=== PATIENT | female | born 1945 | race Caucasian/White ===

== ENCOUNTER 2016-05-29 12:02 | Inpatient (IN) | payer MEDICARE, OTHER ==
[~2016-05-29] VITALS: Ht 165.1 cm; Wt 75.0 kg
[2016-05-29] VITALS (8 sets, daily range): BP systolic 114–164; BP diastolic 56–120
--- NOTE | ~2016-05-29 | CON ---
[place], [place] REPORT OF CONSULTATION NAME: LI MUNGUIA UNIT #: [id number] ROOM: 526 DOCTOR: WILLIAM FERRARA MD BIRTHDATE: [birth year] DOS: 06/01/2016 PSYCHIATRIC CONSULT CHIEF COMPLAINT: "I want to go home." HISTORY OF PRESENT ILLNESS: This is a 71-year-old white female who resides in the [facility]. She lives alone, but does have a home paraprofessional. Her aide felt that she was not acting right and patient had been complaining of burning with urination, so the aide suspected a UTI and brought her in to the Emergency Room to be evaluated. She was subsequently admitted to the hospital for further treatment. Since she has been here, she has voiced worsening depression. She stated to me that she follows at [facility] in [place] and is on multiple meds, some of them help, some of them do not, but she does feel that her depression has worsened of late. She reports fairly decent sleep and appetite. Her energy level was low. She at times gets anxious. There is no psychosis or edis. MENTAL STATUS: Reveals her to be alert and oriented with some mild time gaps, but very little. Mood does seem to be mildly depressed with some anxious overtones. There is no agitation or irritability. There is no hypomania or edis. There are no psychotic symptoms. Short term, intermediate and residential memory are relatively intact. DIAGNOSES: Major depression, recurrent and anxiety disorder, not otherwise specified. The patient is on a plethora of medications, some of which seem to be in very subtherapeutic doses for example BuSpar 7.5 mg daily is subtherapeutic, so I will discontinue it. She is on Celexa, Wellbutrin, and Cymbalta. At this point, I will discontinue the very low dose of Celexa and increase her Cymbalta to 30 mg in the morning and 60 mg at night while maintaining the Wellbutrin. The Cymbalta should help depression and anxiety. I would suggest then she follow up at [facility] in [place] post-discharge. WILLIAM FERRARA MD CM:CONSTR:REPORT OF CONSULTATION 0725 06/01/16 2337 interface
[~2016-05-29 12:02] MED LIST: ADVAIR 100/501 E1; ADVAIR DISKUS 11 DSK INH; ATIVAN PO; ATIVAN1 MG; ATIVAN1 MG PO; ATOXIMETIN-B1 CAP; BACTRIM 400 MG-1 TAB PO; BACTRIM DS 8001 TA1 PO; BISOPROLOL FUMAR5 MG PO; BUPROPION300 MG PO; CELEXA10 MG PO; CIPRO500 MG PO; CYMBALTA30 MG PO; CYMBALTA60 MG PO; FOLIC ACID1 MG PO; HYDROCODONE/ACE1 T12 PO; HYDROXYZINE50 MG PO; LAMICTAL ODT200 MG; LAMICTAL200 MG PO; LAMOTRIGINE200 M2 MM; LOVASTATIN20 MG PO; LUNESTA3 MG PO; MELOXICAM15 MG PO; MOBIC15 MG PO; MULTIVITAMIN FO1 CAP PO; MYSOLINE50 M1 PO; NORCO 325 MG-101 TAB PO; NORCO 5-325 TA1 EACH PO; OMEPRAZOLE20 M2 PO; OXYCONTIN10 MG PO; PRILOSEC20 M1; PRILOSEC20 MG PO; PROAIR HFA0.09 MG/AC IH; PROAIR HFA0.09 MG/AC INH; RESTORIL30 M1 PO; RESTORIL30 MG; RESTORIL30 MG PO; SEROQUEL50 MG PO; SONATA PO; TORADOL10 MG PO; TRAMADOL HCL50 MG; TRAMADOL HCL50 MG PO; TRAZODONE50 MG PO; VICODIN 5/500 505 MG PO; VISTARIL50 MG PO; WELLBUTRIN XL300 MG; WELLBUTRIN XL300 MG PO; Wellbutrin Xl150 MG PO; ZEBETA10 MG PO; ZEBETA5 MG; ZEBETA5 MG PO; ZOFRAN ODT4 MG SL; ZOFRAN4 MG PO
[2016-05-29 13:26] LABS: BASO # 0.1 10*3/uL (0.0-0.1); BASO % 0.7 % (0.0-1.0); EOS # 0.2 10*3/uL (0.0-0.4); HEMATOCRIT 33.8 % (37.0-47.0); HEMOGLOBIN 10.4 g/dl (12.0-16.0); LYMPH # 1.5 10*3/uL (1.3-4.4); LYMPH % 17.3 % (27.0-41.0); MEAN CELL VOLUME 82.8 fl (81.0-99.0); MEAN CORPUSCULAR HGB 25.5 pg (27.0-31.0); MEAN CORPUSCULAR HGB CONC 30.8 g/dl (33.0-37.0); MEAN PLATELET VOLUME 11.8 fl (9.6-12.3); MONO # 1.2 10*3/uL (0.1-1.0); MONO % 12.9 % (3.0-9.0); NEUT # 5.9 10*3/uL (2.3-7.9); NEUT % 66.8 % (47.0-73.0); PLATELET COUNT AUTOMATED 217 10*3/uL (130-400); RED BLOOD COUNT 4.08 10*6/uL (4.10-5.10); RED CELL DISTRI WIDTH 16.1 % (0-14.5); WHITE BLOOD COUNT 8.9 10*3/uL (4.8-10.8)
[2016-05-29 13:38] LABS: BUN 18 mg/dl (7-24); CARBON DIOXIDE 29 mmol/L (21-32); CHLORIDE 107 mmol/L (98-107); EST GLOM FILT AFRICAN AMERICAN > 60 ml/min; GLUCOSE 118 mg/dL (65-99); SODIUM 144 mmol/L (136-145)
[2016-05-29 13:42] LABS: POTASSIUM 2.4 mmol/L (3.5-5.1)
[2016-05-29] MEDS ORDERED: PHENERGAN25 M3 PO (13:54)
[2016-05-29] MEDS ORDERED: BUSPIRONE HCL7.5 MG PO (13:55)
[2016-05-29 13:56] LABS: BILIRUBIN 1+ (NEGATIVE); BLOOD NEGATIVE (NEGATIVE); CLARITY SL CLOUDY (CLEAR); COLOR YELLOW (YELLOW); GLUCOSE NEGATIVE (NEGATIVE); KETONE TRACE (NEGATIVE); LEUKO ESTERASE NEGATIVE (NEGATIVE); NITRITE NEGATIVE (NEGATIVE); PH 5.5 (5.0-9.0); PROTEIN TRACE (NEGATIVE); SPECIFIC GRAVITY >= 1.030 (1.005-1.030)
[2016-05-29 14:10] LABS: EPITHELIAL CELLS 15-20; MUCOUS 1+; URINE REFLEX COMMENT NO (NO)
[2016-05-29 14:46] LABS: ALBUMIN 3.1 gm/dl (3.1-4.5); ALKALINE PHOSPHATASE 68 U/L (45-117); BILIRUBIN, DIRECT < 0.1 mg/dL (0.0-0.2); BILIRUBIN, TOTAL 0.4 mg/dl (0.2-1.0); MAGNESIUM 1.6 mg/dL (1.5-2.1); SGOT/AST 11 IU/L (3-35); SGPT/ALT 12 U/L (12-78); TOTAL PROTEIN 6.6 gm/dL (6.4-8.2)
[2016-05-29] MEDS ORDERED: DAYPRO600 M1 PO (14:55)
[2016-05-29 18:50] LABS: CKMB 1.1 ng/ml (0.5-3.6); CPK 64 U/L (26-192)
[2016-05-29 18:57] LABS: TROPONIN I < 0.015 ng/ml (<0.5)
[2016-05-30] VITALS: BP 130/60
[2016-05-30 06:26] LABS: BASO # 0.1 10*3/uL (0.0-0.1); EOS # 0.3 10*3/uL (0.0-0.4); EOS % 3.3 % (1.0-4.0); HEMATOCRIT 28.3 % (37.0-47.0); HEMOGLOBIN 8.8 g/dl (12.0-16.0); LYMPH # 1.8 10*3/uL (1.3-4.4); MEAN CELL VOLUME 83.2 fl (81.0-99.0); MEAN CORPUSCULAR HGB 25.9 pg (27.0-31.0); MEAN CORPUSCULAR HGB CONC 31.1 g/dl (33.0-37.0); MEAN PLATELET VOLUME 12.4 fl (9.6-12.3); MONO # 1.2 10*3/uL (0.1-1.0); MONO % 14.8 % (3.0-9.0); NEUT # 4.8 10*3/uL (2.3-7.9); NEUT % 58.5 % (47.0-73.0); PLATELET COUNT AUTOMATED 197 10*3/uL (130-400); RED CELL DISTRI WIDTH 16.2 % (0-14.5); WHITE BLOOD COUNT 8.1 10*3/uL (4.8-10.8)
[2016-05-30 06:34] LABS: CPK 75 U/L (26-192)
[2016-05-30 06:38] LABS: TROPONIN I < 0.015 ng/ml (<0.5)
[2016-05-30 07:03] LABS: BUN 13 mg/dl (7-24); CARBON DIOXIDE 28 mmol/L (21-32); CHLORIDE 108 mmol/L (98-107); EST GLOM FILT AFRICAN AMERICAN > 60 ml/min; FREE T4 1.38 ng/dl (0.76-1.46); GLUCOSE 115 mg/dL (65-99); MAGNESIUM 2.1 mg/dL (1.5-2.1); POTASSIUM 3.1 mmol/L (3.5-5.1); SODIUM 143 mmol/L (136-145); THYROID STIM HORMONE (HS) 0.367 uIU/ml (0.358-4.75)
[2016-05-30 07:17] LABS: INTERNATIONAL NORM RATIO 0.9 (2.0-3.5)
[2016-05-30 07:44] LABS: FOLIC ACID 4.96 ng/mL (>5.38)
[2016-05-30 08:00] VITALS: BP 130/75
[2016-05-30 10:00] VITALS: BP 130/75
[2016-05-30 12:00] VITALS: BP 126/55
[2016-05-30 16:00] VITALS: BP 126/55
[2016-05-30 16:43] VITALS: BP 105/76
[2016-05-31] VITALS: BP 131/75
[2016-05-31 07:25] LABS: BASO # 0.1 10*3/uL (0.0-0.1); BASO % 0.7 % (0.0-1.0); EOS # 0.3 10*3/uL (0.0-0.4); EOS % 4.6 % (1.0-4.0); HEMATOCRIT 30.9 % (37.0-47.0); HEMOGLOBIN 9.3 g/dl (12.0-16.0); LYMPH # 2.3 10*3/uL (1.3-4.4); MEAN CELL VOLUME 84.7 fl (81.0-99.0); MEAN CORPUSCULAR HGB 25.5 pg (27.0-31.0); MEAN CORPUSCULAR HGB CONC 30.1 g/dl (33.0-37.0); MEAN PLATELET VOLUME 12.2 fl (9.6-12.3); MONO # 0.8 10*3/uL (0.1-1.0); NEUT # 3.3 10*3/uL (2.3-7.9); NEUT % 48.1 % (47.0-73.0); PLATELET COUNT AUTOMATED 211 10*3/uL (130-400); RED BLOOD COUNT 3.65 10*6/uL (4.10-5.10); RED CELL DISTRI WIDTH 16.5 % (0-14.5); WHITE BLOOD COUNT 6.8 10*3/uL (4.8-10.8)
[2016-05-31 08:00] LABS: BUN 9 mg/dl (7-24); CARBON DIOXIDE 27 mmol/L (21-32); CHLORIDE 113 mmol/L (98-107); EST GLOM FILT AFRICAN AMERICAN > 60 ml/min; GLUCOSE 93 mg/dL (65-99); POTASSIUM 3.8 mmol/L (3.5-5.1); SODIUM 148 mmol/L (136-145)
[2016-05-31 09:00] VITALS: BP 136/86
[2016-05-31 12:00] VITALS: BP 138/67
[2016-05-31 16:00] VITALS: BP 133/58
[2016-05-31 20:00] VITALS: BP 127/79
[2016-06-01] VITALS: BP 139/74
[2016-06-01 08:00] VITALS: BP 146/68
[2016-06-01 12:00] VITALS: BP 136/86; BP 146/68
[2016-06-01] MEDS ORDERED: NATURE'S BLEND F1 MG PO (13:31)
[2016-06-01] MEDS ORDERED: CYMBALTA30 MG PO (13:31)
[2016-06-01] MEDS ORDERED: B12,B-12,B 12500 MC1 PO (13:31)
[2016-06-01 16:00] VITALS: BP 136/86
== END 2016-06-01 16:56 | disposition home or self-care (01) | DRG 640 ==
LOC: ED 12:02 → 5E 16:04 → EDHOLD 16:04 → 5E 16:16
PROVIDERS: Emergency Medicine; Family Medicine; Internal Medicine
DX: E87.6 Hypokalemia (principal); G93.40 Encephalopathy, unspecified; E87.0 Hyperosmolality and hypernatremia; F33.9 Major depressive disorder, recurrent, unspecified; D64.9 Anemia, unspecified; F41.9 Anxiety disorder, unspecified; M19.90 Unspecified osteoarthritis, unspecified site; F17.201 Nicotine dependence, unspecified, in remission; Z87.440 Personal history of urinary (tract) infections; Z90.49 Acquired absence of other specified parts of digestive tract; Z83.3 Family history of diabetes mellitus; Z80.41 Family history of malignant neoplasm of ovary; Z79.899 Other long term (current) drug therapy

== ENCOUNTER → 2016-08-30 | Outpatient (CLI) | payer MEDICARE, OTHER ==
[~2016-08-30] MED LIST changes: +B12,B-12,B 12500 MC1 PO; +BUSPIRONE HCL7.5 MG PO; +DAYPRO600 M1 PO; +NATURE'S BLEND F1 MG PO; +PHENERGAN25 M3 PO
[2016-08-30 13:06] LABS: BASO # 0.1 10*3/uL (0.0-0.1); BASO % 0.7 % (0.0-1.0); EOS # 0.3 10*3/uL (0.0-0.4); EOS % 4.7 % (1.0-4.0); HEMATOCRIT 36.7 % (37.0-47.0); HEMOGLOBIN 11.2 g/dl (12.0-16.0); LYMPH # 2.1 10*3/uL (1.3-4.4); LYMPH % 29.3 % (27.0-41.0); MEAN CELL VOLUME 86.4 fl (81.0-99.0); MEAN CORPUSCULAR HGB 26.4 pg (27.0-31.0); MEAN CORPUSCULAR HGB CONC 30.5 g/dl (33.0-37.0); MEAN PLATELET VOLUME 11.4 fl (9.6-12.3); MONO # 0.8 10*3/uL (0.1-1.0); NEUT # 3.9 10*3/uL (2.3-7.9); PLATELET COUNT AUTOMATED 230 10*3/uL (130-400); RED BLOOD COUNT 4.25 10*6/uL (4.10-5.10); RED CELL DISTRI WIDTH 17.8 % (0-14.5); WHITE BLOOD COUNT 7.3 10*3/uL (4.8-10.8)
[2016-08-30 13:37] LABS: ALBUMIN 3.6 gm/dl (3.1-4.5); ALKALINE PHOSPHATASE 99 U/L (45-117); BILIRUBIN, DIRECT < 0.1 mg/dL (0.0-0.2); BILIRUBIN, TOTAL 0.5 mg/dl (0.2-1.0); BUN 18 mg/dl (7-24); CARBON DIOXIDE 31 mmol/L (21-32); CHLORIDE 105 mmol/L (98-107); EST GLOM FILT AFRICAN AMERICAN > 60 ml/min; GLUCOSE 89 mg/dL (65-99); PHOSPHOROUS 3.8 mg/dL (2.5-4.9); POTASSIUM 4.7 mmol/L (3.5-5.1); SGOT/AST 13 IU/L (3-35); SGPT/ALT 14 U/L (12-78); SODIUM 144 mmol/L (136-145); TOTAL PROTEIN 6.7 gm/dL (6.4-8.2)
== END | disposition home or self-care (01) ==
LOC: LAB 12:16
PROVIDERS: Internal Medicine
DX: J44.9 Chronic obstructive pulmonary disease, unspecified (principal); I10 Essential (primary) hypertension; E87.6 Hypokalemia; R79.89 Other specified abnormal findings of blood chemistry

== ENCOUNTER 2017-04-01 00:38 | Inpatient (IN) | payer MEDICARE, OTHER ==
[2017-04-01] VITALS (7 sets, daily range): BP systolic 101–145; BP diastolic 47–64
[~2017-04-01] VITALS: Ht 165.1 cm; Wt 73.7 kg
--- NOTE | ~2017-04-01 | PR ---
[place], [place] PROGRESS NOTE NAME: LI MUNGUIA UNIT #: [id number] ROOM: 419 DOCTOR: EDGARD UMANA MD BIRTHDATE: [birth year] DOS: 04/03/2017 SUBJECTIVE: The patient was seen at her bedside today, 04/03/2017, for followup of an episode of wide complex tachycardia. Last night she had an episode of narrow complex tachycardia. I reviewed the rhythm strips, it started off with 2 wide complex beats and then a run of narrow complex beats. The R-R interval was the same between the two wide complex beats and the narrow complex beats and in fact the R-R interval was the same when compared to the wide complex tachycardia she had had a day previous. This indicates that most likely all of her arrhythmias were supraventricular in origin and that the wide complex beats were aberrantly conducted. She denies any chest pain or palpitations and was totally unaware of her rapid heartbeats from last evening. PHYSICAL EXAMINATION: VITAL SIGNS: Today her pulse is 76 and regular; blood pressure is 143/66. She is afebrile. She weighs 73.6 kg and has a body mass index of 27. HEENT: Normocephalic, atraumatic. Extraocular muscles are intact. NECK: Supple. She has no jugular distention. Carotids are full without bruits. LUNGS: Respirations are unlabored. Her chest is clear to auscultation and percussion. HEART: Has a regular rhythm with a soft S4 gallop, but no S3 or murmur. The PMI is not displaced. ABDOMEN: Benign. EXTREMITIES: Showed no edema. DIAGNOSTIC STUDIES: I reviewed her echocardiogram from 04/02/2017. It showed normal left ventricular size with mild concentric left ventricular hypertrophy. Overall, left ventricular systolic function was normal with an ejection fraction of 55%. She does have stage 1 diastolic relaxation abnormalities. The left atrium was moderately dilated. There was no obvious abnormality of valve function. IMPRESSION: 1. Wide complex tachycardia. Upon review, I believe that all of her tachycardias were due to supraventricular tachycardia and some of these were with aberrancy. 2. History of hypertension. 3. Severe depression with anxiety. 4. History of syncopal episodes. The patient has not had any of these recently. PLAN: I did increase her bisoprolol overnight. I have no other plans for further cardiac workup at this time and she may be discharged to home from a cardiac standpoint whenever the primary team thinks it is appropriate. We will follow up with her as an outpatient. If her tachycardias become a concern, then referral to an manager of international for possible ablation would be an option. I thank the hospitalist service for asking our advice regarding her care. [place], [place] PROGRESS NOTE NAME: LI MUNGUIA UNIT #: [id number] ROOM: 419 DOCTOR: EDGARD UMANA MD BIRTHDATE: [birth year] EDGARD UMANA MD CM:PNTRANS [id number] EDGARD UMANA MD 04/03/17 1058 interface
--- NOTE | ~2017-04-01 | CON ---
[place], [place] REPORT OF CONSULTATION NAME: LI MUNGUIA UNIT #: [id number] ROOM: 419 DOCTOR: EDGARD UMANA MD BIRTHDATE: [birth year] DOS: 04/02/2017 REASON FOR CONSULTATION: Wide complex tachycardia. HISTORY OF PRESENT ILLNESS: The patient is a 72-year-old woman who is a very poor historian. She carries a diagnosis of major depression with recurrent anxiety disorder, not otherwise specified. She was brought in to the hospital on this occasion from her home with a complaint of total body pain. She states that the pain has been present for over a week and that everything hurts. She did have one episode of emesis prior to admission. Last night in the hospital on the monitor, she had a 30-beat run of wide complex tachycardia at a rate of about 200 beats per minute. This morning at about 5:00 in the morning, she had a much shorter run of wide complex tachycardia. Both should be considered nonsustained ventricular tachycardia. She was not aware of the arrhythmia. The patient denies any history of myocardial infarction or stroke. The hospital records indicate that she was evaluated by Dr. Mike Miranda in March 2012 for recurrent syncope. A transthoracic echocardiogram at that time is reportedly unremarkable, but the report is not currently available for my review. Presently, the patient denies any chest pain. She states that it hurts to take a deep breath. She denies any palpitations, lightheadedness or recent syncope. PAST MEDICAL HISTORY: Includes 1. Major depression with anxiety. 2. Degenerative joint disease. 3. Anemia. 4. Previous tobacco abuse. 5. Status post cholecystectomy. MEDICATIONS: Prior to admission: Bisoprolol 5 mg 1/2 tablet daily, bupropion 300 mg daily, buspirone 7.5 mg b.i.d., duloxetine 90 mg at bedtime, [place] 7.5/325 one tablet q. 8 hours, olanzapine 5 mg daily, omeprazole 20 mg daily and diclofenac gel 100 mg applied topically twice a day. ALLERGIES: The patient lists allergies to no known drugs. FAMILY HISTORY: The patient's mother at age 65 from ovarian cancer. Father had manic depressive disorder and had a suicide episode at age 70. Her grandmother of breast cancer. REVIEW OF SYSTEMS: The patient denies diplopia or loss of vision. She denies focal weakness. She denies lightheadedness or recent syncope. She denies orthopnea or PND. She states that all of her joints hurt everywhere. She denies any swollen, hot or tender joints. She does state that it hurts to take a deep breath. She denies cough, fevers or chills. She denies hemoptysis or hematemesis. She denies change in bowel or bladder habits and denies blood in her stools. She denies orthopnea, PND or peripheral edema. The remainder of the review of systems is negative except as noted above. [place], [place] REPORT OF CONSULTATION NAME: LI MUNGUIA UNIT #: [id number] ROOM: 419 DOCTOR: EDGARD UMANA MD BIRTHDATE: [birth year] SOCIAL HISTORY: The patient lives alone, but does have a home health aide. She was a smoker, but quit about a year ago. She does not consume alcohol or illegal drugs. PHYSICAL EXAMINATION: GENERAL: She is a well-nourished elderly white female who is awake, alert and oriented. VITAL SIGNS: Pulse is 87 and regular; blood pressure is 131/64. She is afebrile. She weighs 73.6 kg and has a body mass index of 27. HEENT: Normocephalic and atraumatic. Extraocular muscles are intact. Sclerae are clear. Pupils are equal, round and react to light. The oral mucosa is moist. Tongue is midline. NECK: Supple. She has no jugular distention. Carotids are full. I heard no bruits. She had no neck or supraclavicular masses and no thyromegaly. RESPIRATIONS: Unlabored. CHEST: Clear to auscultation and percussion. She did have some mild tenderness at the right posterior lung. She had no presacral edema or chest wall tenderness aside from that, CARDIOVASCULAR: Heart had a regular rhythm. She had a soft fourth heart sound, but no third heart sound or significant murmur. The PMI was not displaced. There was no precordial heave, lift or thrill. ABDOMEN: Soft and normally active without masses, organomegaly or bruits. EXTREMITIES: Showed no edema. Peripheral pulses were easily palpated bilaterally. LABORATORY DATA: I reviewed her electrocardiogram. It showed sinus rhythm with frequent PVCs, rate was about 100. She had a normal QTc at 421. She had nonspecific lateral ST changes, which may be ischemic in origin. SUMMARY: She is a 72-year-old woman who had 2 runs of wide complex tachycardia without a history of heart disease. IMPRESSION: 1. Wide complex tachycardia (nonsustained ventricular tachycardia). 2. History of hypertension. 3. Severe depression and anxiety. 4. Syncopal episodes. The patient denies having syncope recently. PLAN: We will obtain an echocardiogram in order to assess her left ventricular systolic function and wall motion. If that is completely normal, then I will probably just increase her bisoprolol and observe her. If irregular heartbeats continue to be a problem, we will consider stress testing, etc. In the meantime, she should be followed for abnormalities of her electrolytes and have these corrected as they come up., I thank the hospitalist physicians for asking our advice regarding her care. [place], [place] REPORT OF CONSULTATION NAME: LI MUNGUIA UNIT #: [id number] ROOM: 419 DOCTOR: EDGARD UMANA MD BIRTHDATE: [birth year] EDGARD UMANA MD CM:CONSTR:REPORT OF CONSULTATION 1114 04/02/17 1244 interface
[~2017-04-01 00:38] MED LIST changes: +BISOPROLOL FM5 MG PO; -ZEBETA10 MG PO
[2017-04-01 01:32] LABS: BASO # 0.1 10*3/uL (0.0-0.1); BASO % 0.5 % (0.0-1.0); EOS # 0.3 10*3/uL (0.0-0.4); EOS % 2.7 % (1.0-4.0); HEMOGLOBIN 9.5 g/dl (12.0-16.0); LYMPH % 15.6 % (27.0-41.0); MEAN CELL VOLUME 80.6 fl (81.0-99.0); MEAN CORPUSCULAR HGB 25.5 pg (27.0-31.0); MEAN CORPUSCULAR HGB CONC 31.7 g/dl (33.0-37.0); MEAN PLATELET VOLUME 11.7 fl (9.6-12.3); MONO # 1.4 10*3/uL (0.1-1.0); MONO % 11.5 % (3.0-9.0); NEUT # 8.7 10*3/uL (2.3-7.9); NEUT % 69.4 % (47.0-73.0); PLATELET COUNT AUTOMATED 276 10*3/uL (130-400); RED BLOOD COUNT 3.72 10*6/uL (4.10-5.10); RED CELL DISTRI WIDTH 15.3 % (0-14.5); WHITE BLOOD COUNT 12.5 10*3/uL (4.8-10.8)
[2017-04-01 01:51] LABS: ALBUMIN 2.5 gm/dl (3.1-4.5); ALKALINE PHOSPHATASE 83 U/L (45-117); BUN 12 mg/dl (7-24); CHLORIDE 104 mmol/L (98-107); CREATININE 0.51 mg/dL (0.55-1.02); LIPASE 67 U/L (73-393); POTASSIUM 2.7 mmol/L (3.5-5.1); SGOT/AST 14 IU/L (3-35); SGPT/ALT 13 U/L (12-78); SODIUM 142 mmol/L (136-145); TOTAL PROTEIN 6.4 gm/dL (6.4-8.2)
[2017-04-01 01:54] LABS: ETHYL ALCOHOL < 3.0 mg/dl (<3); TROPONIN I < 0.015 ng/ml (<0.045)
[2017-04-01 01:57] LABS: THYROID STIM HORMONE (HS) 0.273 uIU/ml (0.358-4.75)
--- NOTE | 2017-04-01 04:01 | NUR ---
CALL MEÑO BEE AT [phone] WITH ANY QUESTIONS OR INFORMATION ABOUT PT .
[2017-04-01 04:23] LABS: BILIRUBIN NEGATIVE (NEGATIVE); BLOOD NEGATIVE (NEGATIVE); CLARITY SL CLOUDY (CLEAR); COLOR YELLOW (YELLOW); GLUCOSE NEGATIVE (NEGATIVE); KETONE NEGATIVE (NEGATIVE); LEUKO ESTERASE 2+ (NEGATIVE); NITRITE NEGATIVE (NEGATIVE); SPECIFIC GRAVITY 1.015 (1.005-1.030)
[2017-04-01 04:31] LABS: BACTERIA 2+; WBC 51-100 wbc/hpf (0-5)
--- NOTE | 2017-04-01 04:58 | NUR ---
PT HAS BEEN YELLING OUT INTO HALLWAY, USING PROFANITY AND DEMANDING SHE BE TAKEN TO A ROOM "RIGHT NOW!!" SHE WAS INFORMED THAT WE DO NOW HAVE A BED ASSIGNMENT AND ARE IN THE PROCESS OF CALLING REPORT TO TRANSFER HER TO INPATIENT ROOM.
--- NOTE | 2017-04-01 05:45 | NUR ---
A 72, admitted to , under the services of JAYLEN Gonzáles DO with a diagnosis of UTI, SEPSIS, CHRONIC PAIN, ACUTE HYPOKALEMIA. Chief complaint is ACUTE PAIN. Patient arrived via ambulance from ER. Monitor applied. Initial assessment completed. Vital signs taken and recorded. JAYLEN GONZÁLES DO notified of admission to the unit. Orders received. See assessment for past medical history, medications and allergies. Patient and/or family oriented to unit. [facility]. Clothing/patient valuable form completed. KIMBERLYN ELDER
--- NOTE | 2017-04-01 10:25 | NUR ---
NORCO 5/325 GIVEN PER PATIENT REQUEST FOR ALL OVER PAIN.
--- NOTE | 2017-04-01 11:30 | NUR ---
PATIENT SLEEPING. NO SIGNS OF PAIN. NORCO EFFECTIVE.
--- NOTE | 2017-04-01 19:11 | NUR ---
NORCO 5/325 GIVEN PER PATIENT REQUEST FOR ALL OVER PAIN RATING AN 8/10 ON PAIN SCALE.
--- NOTE | 2017-04-01 20:00 | NUR ---
Pt resting with eyes closed. No signs of pain noted.
--- NOTE | 2017-04-01 22:15 | NUR ---
Alerted by [facility] that pt had a run of V-tach. Pt is currently sleeping with no distress noted. Pt awoke and she denies any chest pain or any other issues. BP WNL. I reviewed monitor strip and pt did have a 15 beat run of v-tach. I notified Dr. Angel of this and reviewed pt labs and reason for admit. Received telephone order for repeat CMP and mag level and cardiology consult, which he requests they be notified tonight.
--- NOTE | 2017-04-01 22:25 | NUR ---
ANSWERING SERVICE WAS NOTIFIED OF DR. UMANA CONSULT. RESPONSE OF NOTIFICATION WAS STATES THAT DR. DECKER IS PATTERNMAKER PRESSURE CAST. ALL DETAILS OF CONSULT GIVEN TO ANSWERING SERVICE OPERTOR. STATES THEY WILL GIVE THE MESSAGE TO THE PHYSICAN. JUD BELTRÁN
--- NOTE | 2017-04-01 22:29 | NUR ---
DR. DECKER CALLED BACK AND I NOTIFIED HIM OF DETAILS OF CONSULT. PT LABS THIS AM AND REPEAT LABS WERE ORDERED BUT NOT REPORTED YET. STATES THEIR GROUP WILL SEE PT TOMORROW.
[2017-04-01 22:48] LABS: ALBUMIN 2.3 gm/dl (3.1-4.5); ALKALINE PHOSPHATASE 82 U/L (45-117); BUN 9 mg/dl (7-24); CHLORIDE 111 mmol/L (98-107); CREATININE 0.57 mg/dL (0.55-1.02); SGOT/AST 7 IU/L (3-35); SGPT/ALT 11 U/L (12-78); SODIUM 145 mmol/L (136-145); TOTAL PROTEIN 6.1 gm/dL (6.4-8.2)
[2017-04-01 22:49] LABS: POTASSIUM 3.8 mmol/L (3.5-5.1)
[2017-04-02] VITALS: BP 126/60
--- NOTE | 2017-04-02 00:05 | NUR ---
Medicated with norco per prn order for complaints of generalized body pain.
--- NOTE | 2017-04-02 01:00 | NUR ---
Pt sleeping. No signs of pain noted.
--- NOTE | 2017-04-02 04:00 | NUR ---
Assisted up to the bathroom to urinate. C/o pain over entire body requesting vicodin. Medicated that this time per prn order.
--- NOTE | 2017-04-02 05:00 | NUR ---
Pt sleeping no signs of pain noted.
[2017-04-02 06:10] LABS: ALBUMIN 2.1 gm/dl (3.1-4.5); BUN 8 mg/dl (7-24); CHLORIDE 111 mmol/L (98-107); CREATININE 0.44 mg/dL (0.55-1.02); FREE T4 1.12 ng/dl (0.76-1.46); POTASSIUM 3.7 mmol/L (3.5-5.1); SGPT/ALT 12 U/L (12-78); SODIUM 145 mmol/L (136-145)
[2017-04-02 06:19] LABS: ALKALINE PHOSPHATASE 77 U/L (45-117); CHOLESTEROL 124 mg/dL (<200); HDL CHOLESTEROL 30 mg/dl (40-60); LDL CHOLESTEROL 80 mg/dL (9-159); PHOSPHOROUS 2.5 mg/dL (2.5-4.9); SGOT/AST 13 IU/L (3-35); THYROID STIM HORMONE (HS) 0.293 uIU/ml (0.358-4.75); TOTAL PROTEIN 5.7 gm/dL (6.4-8.2); TRIGLYCERIDES 69 mg/dl (<150); VLDL CHOLESTEROL 14 mg/dL (6-40)
[2017-04-02 06:22] LABS: BASO % 0.4 % (0.0-1.0); EOS # 0.5 10*3/uL (0.0-0.4); EOS % 4.7 % (1.0-4.0); HEMATOCRIT 29.2 % (37.0-47.0); HEMOGLOBIN 9.1 g/dl (12.0-16.0); LYMPH # 1.4 10*3/uL (1.3-4.4); LYMPH % 13.1 % (27.0-41.0); MEAN CELL VOLUME 82.7 fl (81.0-99.0); MEAN CORPUSCULAR HGB 25.8 pg (27.0-31.0); MEAN CORPUSCULAR HGB CONC 31.2 g/dl (33.0-37.0); MONO # 1.2 10*3/uL (0.1-1.0); MONO % 11.2 % (3.0-9.0); NEUT # 7.5 10*3/uL (2.3-7.9); NEUT % 70.2 % (47.0-73.0); PLATELET COUNT AUTOMATED 240 10*3/uL (130-400); RED BLOOD COUNT 3.53 10*6/uL (4.10-5.10); RED CELL DISTRI WIDTH 15.6 % (0-14.5); WHITE BLOOD COUNT 10.7 10*3/uL (4.8-10.8)
[2017-04-02 06:40] LABS: ACT PARTIAL THROMBO TIME 27.1 SECONDS (20.8-31.5)
--- NOTE | 2017-04-02 07:40 | NUR ---
PATIENT MEDICATED WITH NORCO AT THIS TIME PER REQUEST FOR COMPLAINTS OF PAIN 12/21 THROUGHOUT BODY. WILL MONITOR FOR EFFECTIVENESS.
[2017-04-02 08:00] VITALS: BP 131/64
--- NOTE | 2017-04-02 08:45 | NUR ---
PER PATIENT, NORCO WAS EFFECTIVE FOR PAIN.
[2017-04-02 08:50] LABS: VITAMIN D, 25-HYDROXY 11.7 ng/mL (30-100)
--- NOTE | 2017-04-02 09:00 | NUR ---
Literacy Tutor in to talk to patient. Patient states lives at home with alone. There are few steps in the home. Physician: bartolome [facility]acy: [facility]: [facility] aids Patient's level of ADLs: MINIMAL ASSIST Patient has working utilities: all working DME: cane, wheelchair Follow-up physician's appointment after d/c: will be made by hositalist nurse director upon dischrage Does patient want to access PORTAL?: no Discharge plan discussed with patient, patient lives at home alone, she has a mental health rn case mgr and her sister helps her, she has a cane for ambulation, also a wheelchair, she has [employer] delivers meals and aids from [facility] that are there 4 hours a day, discussed with her a discharge plan including a short term snf and she became angry and refused, also discussed with her VNA and she stated she already had aids, she didn't need anything else, case management will follow for any home needs . PETAR TYLER
[2017-04-02] MEDS ORDERED: NORCO 7.5-3251 EACH PO (10:15)
[2017-04-02] MEDS ORDERED: VOLTAREN100 GM T (10:17)
[2017-04-02] MEDS ORDERED: ZYPREXA5 M1 PO (10:18)
[2017-04-02] MEDS ORDERED: BUSPAR5 MG PO (10:19)
[2017-04-02] MEDS ORDERED: CYMBALTA30 MG PO (10:29)
--- NOTE | 2017-04-02 10:30 | NUR ---
CALLED [facility] AND UPDATED MED REC.
[2017-04-02 11:57] VITALS: BP 142/58
--- NOTE | 2017-04-02 12:12 | NUR ---
Physical therapy evaluation completed. Patient reporting having pain everywhere and does not want get up d/t her pain meds wearing off and is due for another in approx an hour. Patient reports pain at 8/10. Patient did participate in bed mobility and sitting EOB. Supine to sit with definite need of bed rails, supervision. Sitting EOB supervision, no LOB. Pain reported after sitting approximately 2 minutes and pt requested to lay down. Weakness of B LE's present. R UE ROM limited d/t (old) fracture with ORIF per patient. Plan to stand and walk next therapy session. Continue with therapy as tolerated. Patient wants to go home william. Low complexity PT eval d/t time spent with chart review and with patient. Thank you for this referral, tyrone Mora, PT
--- NOTE | 2017-04-02 12:23 | NUR ---
PATIENT MEDICATED WITH NORCO AT THIS TIME FOR COMPLAINTS OF PAIN T/O BODY. WILL MONITOR FOR EFFECTIVENESS.
--- NOTE | 2017-04-02 13:23 | NUR ---
PATIENT STATES THAT NORCO HAS BEEN EFFECTIVE. NO FURTHER COMPLAINTS
--- NOTE | 2017-04-02 15:13 | NUR ---
PT MEDICATED WITH ZOFRAN FOR COMPLAINTS OF NAUSEA. WILL MONITOR FOR EFFECTIVWENESS.
[2017-04-02 16:00] VITALS: BP 124/61
--- NOTE | 2017-04-02 16:19 | NUR ---
PT STATES THAT ZOFRAN WAS EFFECTIVE FOR NAUSEA. COMPLAINING OF GENERALIZED BODY ACHES AGAIN AT THIS TIME & MEDICATED WITH NORCO PER PRN ORDER. WILL MONITOR.
--- NOTE | 2017-04-02 17:20 | NUR ---
PATIENT STATE THAT NORCO HAS BEEN EFFECIVE AT THIS TIME
--- NOTE | 2017-04-02 18:00 | NUR ---
PATIENT CALLED OUT SAYING THAT SHE HAD VOMITED BUT SOMEONE HAD ALREADY EMPTIED THE BASIN. NURSE ATTEMPTED TO EXPLAIN TO THE PATIENT THAT IT WAS TOO EARLY FOR RUDY SHE HAD IT AT 1500 & IT WAS EVERY 6 HOURS THE PATIENT YELLED AT THE NURSE & TOLD HER TO GET OUT IF I WAS GOING TO BE RUDE. RN THEN ASKED HOW I WAS BEING RUDE AND HER RESPONSE WAS YOU AREN'T GETTING ME SHANTI KIRSTY. I RESPONDED THAT I WAS GOING TO GET HER SHANTI KIRSTY BUT WANTED TO KNOW IF SHE WANTED REGULAR OR DIET. SHE SAID REGULAR AND GET IT NOW OR DON'T COME BACK. SHANTI KIRSTY GOTTEN
[2017-04-02 20:00] VITALS: BP 154/86
--- NOTE | 2017-04-02 20:31 | NUR ---
C/O 10 LOWER BACK PAIN. MEDICATED WITH PRN NORCO ORDERED AND PER PATIENT REQUEST.
--- NOTE | 2017-04-02 21:30 | NUR ---
PATIENT STATES HER PAIN HAS DECREASED. NORCO EFFECTIVE.
--- NOTE | 2017-04-02 21:45 | NUR ---
DR. UMANA AND DR. MALIA DODGE NOTIFIED OF PAT GARRISON. DR. UMANA SAID HE WILL INCREASE THE PATIENTS BETA JEN.
--- NOTE | 2017-04-02 21:49 | NUR ---
C/O INSOMNIA. MEDICATED WITH RESTORIL ORDERED AND PER PATIENT REQUEST.
--- NOTE | 2017-04-02 22:43 | NUR ---
PATIENT ASLEEP. RESTORIL EFFECTIVE.
--- NOTE | 2017-04-02 23:19 | NUR ---
24 HR chart check completed.
--- NOTE | 2017-04-02 23:49 | NUR ---
ASSUMED CARE FOR THIS PT AT THIS TIME. MEDICATED W/PRN TYLENOL FOR ELEVATED TEMP. NO C/O VOICED AT THIS TIME. CALL LIGHT W/IN REACH.
[2017-04-03] VITALS: BP 131/53
--- NOTE | 2017-04-03 04:57 | NUR ---
PT AMBULATED TO BR W/CANE X1 ASSIST. NO C/O VOICED.
[2017-04-03 06:46] LABS: BASO # 0.1 10*3/uL (0.0-0.1); BASO % 0.5 % (0.0-1.0); EOS # 0.5 10*3/uL (0.0-0.4); EOS % 4.8 % (1.0-4.0); HEMATOCRIT 28.7 % (37.0-47.0); HEMOGLOBIN 8.8 g/dl (12.0-16.0); LYMPH # 1.7 10*3/uL (1.3-4.4); LYMPH % 17.8 % (27.0-41.0); MEAN CELL VOLUME 82.5 fl (81.0-99.0); MEAN CORPUSCULAR HGB 25.3 pg (27.0-31.0); MEAN CORPUSCULAR HGB CONC 30.7 g/dl (33.0-37.0); MEAN PLATELET VOLUME 11.7 fl (9.6-12.3); MONO % 9.8 % (3.0-9.0); NEUT # 6.5 10*3/uL (2.3-7.9); NEUT % 66.7 % (47.0-73.0); PLATELET COUNT AUTOMATED 242 10*3/uL (130-400); RED BLOOD COUNT 3.48 10*6/uL (4.10-5.10); RED CELL DISTRI WIDTH 15.4 % (0-14.5); WHITE BLOOD COUNT 9.7 10*3/uL (4.8-10.8)
[2017-04-03 07:06] LABS: BUN 5 mg/dl (7-24); CHLORIDE 108 mmol/L (98-107); POTASSIUM 3.1 mmol/L (3.5-5.1); SODIUM 144 mmol/L (136-145)
[2017-04-03 08:00] VITALS: BP 143/66
--- NOTE | 2017-04-03 09:00 | NUR ---
case management visits with patient, patient was very upset, yelling, attempted to calm patient, she stated all she wanted was to go home, case management will follow
--- NOTE | 2017-04-03 11:06 | NUR ---
PHYSICAL THERAPY Pt see this AM 1:1 for her therapy session, and just wanting to go home. Transfer supine/sit CGA X 1, sitting balance supervision x 1, X 4 min. Sit/stand, standing balance with her straight cane MIN YEAST MAKER X 1. Gait 27' X 1, with cueing for gait safety, balance, turns and Pt had IV Pole. Pt needing help with her gait at this time and cues for safety. She is not as good as she thinks she is, Pt back supine in bed, call light phone and wanting to go home. MAHI ZAMUDIO BUSINESS INSURANCE AGENT.
--- NOTE | 2017-04-03 11:51 | NUR ---
Discharge instructions reviewed with patient/family. Patient receptive and verbalizes understanding. Follow-up care arranged. Written instructions given to patient/family. ANISH IBRAHIM
--- NOTE | 2017-04-03 13:59 | NUR ---
PHYSICAL THERAPY CO-SIGN I approve of the Phyical Therapy notes written above. FREDI RANDALL PT
== END 2017-04-03 11:35 | disposition left against medical advice (07) | DRG 871 ==
LOC: ED 00:38 → 4E 04:53 → EDHOLD 04:53 → 4E 04:56
PROVIDERS: Emergency Medicine Emergency Medical Services; Hospitalist; Internal Medicine; ADMIT Internal Medicine
DX: A41.9 Sepsis, unspecified organism (principal); G93.41 Metabolic encephalopathy; N39.0 Urinary tract infection, site not specified; D64.9 Anemia, unspecified; I47.1 Supraventricular tachycardia; E87.6 Hypokalemia; F41.9 Anxiety disorder, unspecified; G89.29 Other chronic pain; F32.9 Major depressive disorder, single episode, unspecified; M19.90 Unspecified osteoarthritis, unspecified site; Z60.2 Problems related to living alone; I10 Essential (primary) hypertension; Z53.21 Procedure and treatment not carried out due to patient leaving prior to being seen by health care provider; Z90.49 Acquired absence of other specified parts of digestive tract; Z79.899 Other long term (current) drug therapy; Z87.891 Personal history of nicotine dependence; Z80.41 Family history of malignant neoplasm of ovary; Z80.3 Family history of malignant neoplasm of breast; Z81.8 Family history of other mental and behavioral disorders; Z83.3 Family history of diabetes mellitus

== ENCOUNTER → 2017-04-20 | Outpatient (CLI) | payer MEDICARE, OTHER ==
[~2017-04-20] MED LIST changes: +BUSPAR5 MG PO; +NORCO 7.5-3251 EACH PO; +VOLTAREN100 GM T; +ZYPREXA5 M1 PO
[2017-04-20 14:20] LABS: BASO # 0.1 10*3/uL (0.0-0.1); EOS # 0.4 10*3/uL (0.0-0.4); EOS % 5.4 % (1.0-4.0); HEMATOCRIT 34.3 % (37.0-47.0); HEMOGLOBIN 10.5 g/dl (12.0-16.0); LYMPH % 25.4 % (27.0-41.0); MEAN CELL VOLUME 80.5 fl (81.0-99.0); MEAN CORPUSCULAR HGB 24.6 pg (27.0-31.0); MEAN CORPUSCULAR HGB CONC 30.6 g/dl (33.0-37.0); MEAN PLATELET VOLUME 11.3 fl (9.6-12.3); MONO # 0.7 10*3/uL (0.1-1.0); MONO % 8.7 % (3.0-9.0); NEUT # 4.7 10*3/uL (2.3-7.9); NEUT % 59.2 % (47.0-73.0); PLATELET COUNT AUTOMATED 338 10*3/uL (130-400); RED BLOOD COUNT 4.26 10*6/uL (4.10-5.10); WHITE BLOOD COUNT 7.9 10*3/uL (4.8-10.8)
[2017-04-20 14:48] LABS: ALKALINE PHOSPHATASE 99 U/L (45-117); BILIRUBIN, DIRECT 0.1 mg/dL (0.0-0.2); BUN 12 mg/dl (7-24); CHLORIDE 103 mmol/L (98-107); CREATININE 0.88 mg/dL (0.55-1.02); POTASSIUM 3.1 mmol/L (3.5-5.1); SGOT/AST 14 IU/L (3-35); SGPT/ALT 12 U/L (12-78); SODIUM 139 mmol/L (136-145); TOTAL PROTEIN 7.2 gm/dL (6.4-8.2)
[2017-04-20 14:50] LABS: BILIRUBIN NEGATIVE (NEGATIVE); BLOOD NEGATIVE (NEGATIVE); CLARITY CLEAR (CLEAR); COLOR YELLOW (YELLOW); GLUCOSE NEGATIVE (NEGATIVE); KETONE NEGATIVE (NEGATIVE); LEUKO ESTERASE TRACE (NEGATIVE); NITRITE NEGATIVE (NEGATIVE); SPECIFIC GRAVITY 1.015 (1.005-1.030); UROBILINOGEN 0.2 E.U./dl (0.2-1.0)
[2017-04-20 14:59] LABS: RBC 0-2 rbc/hpf (0-2)
[2017-04-20 15:00] LABS: BACTERIA TRACE
== END | disposition home or self-care (01) ==
LOC: LAB 13:38
PROVIDERS: Internal Medicine
DX: I10 Essential (primary) hypertension (principal); D64.9 Anemia, unspecified; R30.0 Dysuria

== ENCOUNTER 2017-05-13 11:14 | Inpatient (IN) | payer MEDICARE, OTHER ==
[~2017-05-13] VITALS: Ht 165.1 cm; Wt 74.4 kg
[2017-05-13 11:30] VITALS: BP 118/63
[2017-05-13 11:39] LABS: BASO # 0.1 10*3/uL (0.0-0.1); BASO % 0.7 % (0.0-1.0); EOS # 0.3 10*3/uL (0.0-0.4); EOS % 3.2 % (1.0-4.0); HEMATOCRIT 31.3 % (37.0-47.0); HEMOGLOBIN 9.5 g/dl (12.0-16.0); LYMPH # 1.9 10*3/uL (1.3-4.4); LYMPH % 22.1 % (27.0-41.0); MEAN CELL VOLUME 78.6 fl (81.0-99.0); MEAN CORPUSCULAR HGB 23.9 pg (27.0-31.0); MEAN CORPUSCULAR HGB CONC 30.4 g/dl (33.0-37.0); MONO # 0.8 10*3/uL (0.1-1.0); MONO % 9.5 % (3.0-9.0); NEUT # 5.4 10*3/uL (2.3-7.9); NEUT % 64.1 % (47.0-73.0); PLATELET COUNT AUTOMATED 304 10*3/uL (130-400); RED BLOOD COUNT 3.98 10*6/uL (4.10-5.10); RED CELL DISTRI WIDTH 16.7 % (0-14.5); WHITE BLOOD COUNT 8.5 10*3/uL (4.8-10.8)
[2017-05-13 11:58] LABS: ALBUMIN 2.7 gm/dl (3.1-4.5); ALKALINE PHOSPHATASE 91 U/L (45-117); BUN 14 mg/dl (7-24); CHLORIDE 101 mmol/L (98-107); CREATININE 0.55 mg/dL (0.55-1.02); POTASSIUM 2.6 mmol/L (3.5-5.1); SGOT/AST 13 IU/L (3-35); SGPT/ALT 13 U/L (12-78); SODIUM 143 mmol/L (136-145); TOTAL PROTEIN 6.6 gm/dL (6.4-8.2)
[2017-05-13 12:20] LABS: BILIRUBIN NEGATIVE (NEGATIVE); BLOOD NEGATIVE (NEGATIVE); CLARITY SL CLOUDY (CLEAR); COLOR YELLOW (YELLOW); GLUCOSE NEGATIVE (NEGATIVE); KETONE NEGATIVE (NEGATIVE); LEUKO ESTERASE NEGATIVE (NEGATIVE); NITRITE NEGATIVE (NEGATIVE); SPECIFIC GRAVITY 1.025 (1.005-1.030)
[2017-05-13 12:38] LABS: BACTERIA 1+; CALCIUM OXALATE CRYSTALS TRACE; MUCOUS 1+
[2017-05-13 14:13] VITALS: BP 115/60
[2017-05-13 14:15] VITALS: BP 115/60
[2017-05-13] MEDS ORDERED: POTASSIUM CHLO10 ME5 PO (15:07)
== END 2017-05-13 17:27 | disposition home or self-care (01) | DRG 640 ==
LOC: ED 11:14 → EDHOLD 13:32 → 4E 13:37
PROVIDERS: Nurse Practitioner Family
DX: E87.6 Hypokalemia (principal); E43 Unspecified severe protein-calorie malnutrition; F33.9 Major depressive disorder, recurrent, unspecified; F41.9 Anxiety disorder, unspecified; M19.90 Unspecified osteoarthritis, unspecified site; D50.9 Iron deficiency anemia, unspecified; G89.29 Other chronic pain; Z90.49 Acquired absence of other specified parts of digestive tract; Z87.891 Personal history of nicotine dependence; Z83.3 Family history of diabetes mellitus; Z81.8 Family history of other mental and behavioral disorders; Z80.3 Family history of malignant neoplasm of breast; Z79.899 Other long term (current) drug therapy; Z68.27 Body mass index [BMI] 27.0-27.9, adult; Z87.440 Personal history of urinary (tract) infections; Z85.43 Personal history of malignant neoplasm of ovary

== ENCOUNTER 2017-06-09 09:43 | Inpatient (IN) | payer MEDICARE, OTHER ==
[~2017-06-09] VITALS: Ht 165.1 cm; Wt 70.3 kg
[~2017-06-09 09:43] MED LIST changes: +POTASSIUM CHLO10 ME5 PO
[2017-06-09 10:02] VITALS: BP 137/66
[2017-06-09] MEDS ORDERED: PROMETHAZINE HC25 M1 PO (10:05)
[2017-06-09] MEDS ORDERED: GUAIFENESIN600 MG PO (10:05)
[2017-06-09 10:15] LABS: BASO # 0.1 10*3/uL (0.0-0.1); BASO % 0.8 % (0.0-1.0); EOS # 0.1 10*3/uL (0.0-0.4); EOS % 2.1 % (1.0-4.0); HEMATOCRIT 29.2 % (37.0-47.0); LYMPH # 0.9 10*3/uL (1.3-4.4); LYMPH % 14.3 % (27.0-41.0); MEAN CELL VOLUME 75.8 fl (81.0-99.0); MEAN CORPUSCULAR HGB 23.4 pg (27.0-31.0); MEAN CORPUSCULAR HGB CONC 30.8 g/dl (33.0-37.0); MEAN PLATELET VOLUME 11.6 fl (9.6-12.3); MONO % 14.9 % (3.0-9.0); NEUT # 4.4 10*3/uL (2.3-7.9); NEUT % 67.6 % (47.0-73.0); PLATELET COUNT AUTOMATED 300 10*3/uL (130-400); RED BLOOD COUNT 3.85 10*6/uL (4.10-5.10); RED CELL DISTRI WIDTH 16.9 % (0-14.5); WHITE BLOOD COUNT 6.6 10*3/uL (4.8-10.8)
[2017-06-09 10:27] LABS: ACT PARTIAL THROMBO TIME 25.5 SECONDS (20.8-31.5)
[2017-06-09 10:34] LABS: ALBUMIN 2.5 gm/dl (3.1-4.5); ALKALINE PHOSPHATASE 80 U/L (45-117); BUN 11 mg/dl (7-24); CHLORIDE 106 mmol/L (98-107); CREATININE 0.47 mg/dL (0.55-1.02); LIPASE 50 U/L (73-393); POTASSIUM 2.5 mmol/L (3.5-5.1); SGOT/AST 20 IU/L (3-35); SGPT/ALT 11 U/L (12-78); SODIUM 142 mmol/L (136-145); TOTAL PROTEIN 6.3 gm/dL (6.4-8.2); TROPONIN I 0.045 ng/ml (<0.045)
[2017-06-09 11:19] VITALS: BP 147/50
[2017-06-09 12:00] VITALS: BP 123/63
[2017-06-09 16:00] VITALS: BP 138/76; BP 146/55
[2017-06-09 20:00] VITALS: BP 140/64
[2017-06-09 20:56] LABS: BILIRUBIN NEGATIVE (NEGATIVE); BLOOD NEGATIVE (NEGATIVE); CLARITY SL CLOUDY (CLEAR); COLOR YELLOW (YELLOW); GLUCOSE NEGATIVE (NEGATIVE); KETONE NEGATIVE (NEGATIVE); LEUKO ESTERASE 1+ (NEGATIVE); NITRITE POSITIVE (NEGATIVE); PH 6.5 (5.0-9.0)
[2017-06-09 21:02] LABS: BACTERIA 4+; RBC 0-2 rbc/hpf (0-2); WBC TNTC wbc/hpf (0-5)
[2017-06-10] VITALS (7 sets, daily range): BP systolic 119–143; BP diastolic 58–91
[2017-06-10 07:18] LABS: BASO % 0.6 % (0.0-1.0); HEMATOCRIT 27.8 % (37.0-47.0); HEMOGLOBIN 8.3 g/dl (12.0-16.0); MEAN CELL VOLUME 76.4 fl (81.0-99.0); MEAN CORPUSCULAR HGB 22.8 pg (27.0-31.0); MEAN CORPUSCULAR HGB CONC 29.9 g/dl (33.0-37.0); MEAN PLATELET VOLUME 11.5 fl (9.6-12.3); MONO # 0.3 10*3/uL (0.1-1.0); MONO % 5.7 % (3.0-9.0); NEUT % 74.3 % (47.0-73.0); PLATELET COUNT AUTOMATED 275 10*3/uL (130-400); RED BLOOD COUNT 3.64 10*6/uL (4.10-5.10); WHITE BLOOD COUNT 5.4 10*3/uL (4.8-10.8)
[2017-06-10 07:43] LABS: ALBUMIN 2.4 gm/dl (3.1-4.5); BUN 7 mg/dl (7-24); CHLORIDE 105 mmol/L (98-107); POTASSIUM 3.2 mmol/L (3.5-5.1); SODIUM 141 mmol/L (136-145)
[2017-06-10 07:47] LABS: ALKALINE PHOSPHATASE 78 U/L (45-117); CREATININE 0.48 mg/dL (0.55-1.02); PHOSPHOROUS 2.6 mg/dL (2.5-4.9); SGOT/AST 21 IU/L (3-35); SGPT/ALT 13 U/L (12-78); TOTAL PROTEIN 6.1 gm/dL (6.4-8.2)
[2017-06-10 09:08] LABS: VITAMIN D, 25-HYDROXY 4.9 ng/mL (30-100)
[2017-06-11] VITALS: BP 142/85
[2017-06-11 07:50] LABS: BASO % 0.1 % (0.0-1.0); HEMATOCRIT 29.6 % (37.0-47.0); HEMOGLOBIN 8.7 g/dl (12.0-16.0); LYMPH # 1.7 10*3/uL (1.3-4.4); LYMPH % 24.4 % (27.0-41.0); MEAN CELL VOLUME 76.9 fl (81.0-99.0); MEAN CORPUSCULAR HGB 22.6 pg (27.0-31.0); MEAN CORPUSCULAR HGB CONC 29.4 g/dl (33.0-37.0); MEAN PLATELET VOLUME 11.5 fl (9.6-12.3); MONO # 0.7 10*3/uL (0.1-1.0); MONO % 9.9 % (3.0-9.0); NEUT # 4.5 10*3/uL (2.3-7.9); PLATELET COUNT AUTOMATED 293 10*3/uL (130-400); RED BLOOD COUNT 3.85 10*6/uL (4.10-5.10); RED CELL DISTRI WIDTH 17.1 % (0-14.5)
[2017-06-11 08:00] VITALS: BP 143/89
[2017-06-11 08:15] LABS: BUN 6 mg/dl (7-24); CHLORIDE 108 mmol/L (98-107); CREATININE 0.44 mg/dL (0.55-1.02); POTASSIUM 3.4 mmol/L (3.5-5.1); SODIUM 143 mmol/L (136-145)
[2017-06-11 12:00] VITALS: BP 152/90
[2017-06-11] MEDS ORDERED: LEVAQUIN750 M1 PO (14:03)
[2017-06-11] MEDS ORDERED: PREDNISONE10 MG PO (14:03)
[2017-06-11] MEDS ORDERED: TAMIFLU 75MG CA75 MG PO (14:03)
== END 2017-06-11 15:53 | disposition home or self-care (01) | DRG 871 ==
LOC: ED 09:43 → 4E 11:34
PROVIDERS: Emergency Medicine; Internal Medicine
DX: A41.9 Sepsis, unspecified organism (principal); E43 Unspecified severe protein-calorie malnutrition; J18.9 Pneumonia, unspecified organism; J44.0 Chronic obstructive pulmonary disease with (acute) lower respiratory infection; D50.9 Iron deficiency anemia, unspecified; F17.201 Nicotine dependence, unspecified, in remission; J44.1 Chronic obstructive pulmonary disease with (acute) exacerbation; K63.9 Disease of intestine, unspecified; R73.9 Hyperglycemia, unspecified; J11.1 Influenza due to unidentified influenza virus with other respiratory manifestations; E87.6 Hypokalemia; F41.9 Anxiety disorder, unspecified; M19.90 Unspecified osteoarthritis, unspecified site; G89.29 Other chronic pain; D72.810 Lymphocytopenia; M41.84 Other forms of scoliosis, thoracic region; M54.5 Low back pain; Z60.2 Problems related to living alone; Z53.29 Procedure and treatment not carried out because of patient's decision for other reasons; F32.9 Major depressive disorder, single episode, unspecified; Z90.49 Acquired absence of other specified parts of digestive tract; Z80.41 Family history of malignant neoplasm of ovary; Z80.3 Family history of malignant neoplasm of breast; Z81.8 Family history of other mental and behavioral disorders; Z79.899 Other long term (current) drug therapy; Z68.26 Body mass index [BMI] 26.0-26.9, adult

== ENCOUNTER → 2017-07-27 | Outpatient (CLI) | payer MEDICARE, OTHER ==
[~2017-07-27] MED LIST changes: +GUAIFENESIN600 MG PO; +LEVAQUIN750 M1 PO; +PREDNISONE10 MG PO; +PROMETHAZINE HC25 M1 PO; +TAMIFLU 75MG CA75 MG PO
[2017-07-27 11:50] LABS: ALBUMIN 3.2 gm/dl (3.1-4.5); ALKALINE PHOSPHATASE 90 U/L (45-117); BUN 17 mg/dl (7-24); CEA 3.4 ng/mL; CHLORIDE 107 mmol/L (98-107); CREATININE 0.74 mg/dL (0.55-1.02); POTASSIUM 3.9 mmol/L (3.5-5.1); SGOT/AST 16 IU/L (3-35); SGPT/ALT 13 U/L (12-78); SODIUM 142 mmol/L (136-145); TOTAL PROTEIN 7.3 gm/dL (6.4-8.2)
== END | disposition home or self-care (01) ==
LOC: LAB 11:05
PROVIDERS: Surgery
DX: C18.4 Malignant neoplasm of transverse colon (principal)

== ENCOUNTER → 2017-09-14 | Outpatient (CLI) | payer MEDICARE, OTHER ==
[2017-09-14 12:24] LABS: ALBUMIN 2.9 gm/dl (3.1-4.5); BUN 10 mg/dl (7-24); CHLORIDE 106 mmol/L (98-107); CREATININE 0.52 mg/dL (0.55-1.02); PHOSPHOROUS 3.1 mg/dL (2.5-4.9); POTASSIUM 4.5 mmol/L (3.5-5.1); SODIUM 140 mmol/L (136-145)
== END | disposition home or self-care (01) ==
LOC: LAB 11:40
PROVIDERS: Internal Medicine
DX: E87.6 Hypokalemia (principal)